=== PATIENT | male | born 1980 | race Caucasian/White ===

== ENCOUNTER 2019-02-18 09:57 | Inpatient (IN) | payer OTHER ==
[~2019-02-18] VITALS: Ht 177.8 cm; Wt 89.4 kg
[2019-02-18 10:19] VITALS: BP 114/86
[2019-02-18] MEDS ORDERED: VITAMIN D22000 UNIT PO (10:21)
[2019-02-18] MEDS ORDERED: MICROZIDE12.5 MG PO (10:21)
[2019-02-18] MEDS ORDERED: LANTUS SUBQ (10:21)
[2019-02-18] MEDS ORDERED: NOVOLOG100 UNIT/1 SUBQ (10:22)
[2019-02-18 10:45] LABS: ABSOLUTE BASOPHILS 0.1 thou/uL (0.0-0.2); ABSOLUTE EOSINOPHILS 0.4 thou/uL (0.0-0.7); ABSOLUTE LYMPHOCYTES 2.1 thou/uL (0.8-5.3); ABSOLUTE MONOCYTES 0.7 thou/uL (0.0-1.2); ABSOLUTE NEUTROPHILS 4.9 thou/uL (1.6-8.1); BASOPHILS 0.8 %; EOSINOPHILS 5.4 %; HEMATOCRIT 42.5 % (42.0-52.0); HEMOGLOBIN 14.4 gm/dL (14.0-18.0); MCH 31.4 pg (26.0-34.0); MCHC 33.8 g/dL (28.0-37.0); MONOCYTES 8.6 %; MPV 7.3 fl. (7.2-11.1); NUCLEATED RBCS 0 /100WBC; PLATELET COUNT* 234 thou/uL (150-400); POLYS 59.2 %; RBC 4.57 mil/uL (4.50-6.00); RDW-CV 12.4 % (10.5-14.5); WBC 8.3 thou/uL (4.0-11.0)
[2019-02-18 10:46] LABS: URINE BILIRUBIN NEGATIVE (Negative); URINE BLOOD NEGATIVE (Negative); URINE CLARITY CLEAR; URINE COLOR YELLOW; URINE GLUCOSE-RANDOM 2+ (Negative); URINE KETONES NEGATIVE (Negative); URINE LEUKOCYTES-REFLEX NEGATIVE (Negative); URINE NITRITE-REFLEX NEGATIVE (Negative); URINE PROTEIN NEGATIVE (Negative); URINE SPECIFIC GRAVITY <= 1.005 (1.005-1.030); URINE UROBILINOGEN 0.2 E.U./dl (0.2-1.0)
[2019-02-18 10:58] LABS: BE -2.6 mmol/L (-2 to +3); PCO2 42.9 mmHg (35.0-45.0); pH 7.348 (7.340-7.450)
[2019-02-18 11:00] LABS: PO2 129.8 mmHg (75.0-100.0)
[2019-02-18 11:05] LABS: ALBUMIN 3.5 g/dL (3.4-5.0); CREATININE 0.9 mg/dL (0.6-1.3); TOTAL BILIRUBIN 0.5 mg/dL (<0.1-1.0); TOTAL PROTEIN 7.9 g/dL (6.4-8.2)
[2019-02-18 11:13] LABS: APTT 25.9 Seconds (25.0-31.3)
[2019-02-18 12:17] VITALS: BP 124/81
[2019-02-18 12:38] LABS: AMP/METHAMP Negative (Negative); BARBITURATES Negative (Negative); BENZODIAZEPINES Negative (Negative); COCAINE Negative (Negative); METHADONE Negative (Negative); OPIATES Negative (Negative); PCP Negative (Negative); THC POSITIVE (Negative)
[2019-02-18] MEDS ORDERED: ASA81BEC PO (15:15)
[2019-02-18 17:09] VITALS: BP 118/73
--- NOTE | 2019-02-18 18:05 | NUR ---
PATIENT RESTIN GIN BED. PATIENT IS UP AD LONNIE IN ROOM. BLOOD SUGAR BETTER THIS EVENING AT 226. PATIENT HAS EXCELLENT APPETITE AND WAS EDUCATED ON NOT SNACKING IN BETWEEN MEALS UNTIL BLOOD SUGAR UNDER CONTROL. PATIENT DENIES ANY PAIN. PATIENT REQUESTED NICOTINE GUM WHICH IS NOT AVAILABLE PER PHARMACY SO NICOTINE PATCH PLACED. PATIENT DENIES ANY NEEDS AT THIS TIME. CALL LIGHT WITHIN REACH.
[2019-02-18 20:05] VITALS: BP 120/75
[2019-02-19 00:40] VITALS: BP 100/67
--- NOTE | 2019-02-19 04:30 | NUR ---
PATIENT C/O PAIN/NEUROPATHY TO LOWER EXTREMITIES AT START OF SHIFT. RECEIVED ONETIME ORDER OF GABAPENTIN. WHEN ATTEMPTING TO ADMINISTER, PATIENT STATES "IT DOES NOT WORK. I HAVE BEEN PRESCRIBED THAT BEFORE. ALL IT DOES IS MAKE ME SICK." RECONTACTED PHYSICIAN FOR DIFFERENT ORDERS. ORDER RECEIVED FOR HYDROCODONE. PATIENT ALSO ENCOURAGED TO AMBULATE TO IMPROVE BLOOD FLOW. PAIN HAS SINCE BEEN RELIEVED AND PATIENT ABLE TO SLEEP. CALL LIGHT WITHIN REACH
[2019-02-19 05:00] VITALS: BP 98/63
[2019-02-19 08:57] VITALS: BP 120/72
[2019-02-19] MEDS ORDERED: LANTUS SUBQ (11:32)
[2019-02-19] MEDS ORDERED: TEST STRIPS1 EACH TOP (11:32)
[2019-02-19] MEDS ORDERED: NOVOLOG100 UNIT/1 SUBQ (11:32)
--- NOTE | 2019-02-19 11:57 | NUR ---
Pt is A&O. Resides at home with his parents and several other adults. Independent, Pt recently started a job at [employer]. No DME. No hx of HH or SNF. CM provided Pt with safety net clinic info and encouraged to [facility] [place] see if he qualifies for the gold card. Nurse provided glucometer. Pt discharging to home today
[2019-02-19 12:32] VITALS: BP 120/72
--- NOTE | 2019-02-19 13:16 | NUR ---
VSS, ASSUMED CARE IN THE AM, ASSESSMENT PERFORMED AND CHARTED, FALL PRECAUTIONS IN PLACE AND CALL LIGHT IN REACH, PT IS A&O4 AND UP AD LONNIE, PT STATED PAIN IN LEGS, PT IS TRACING SR ON THE MONITOR, AT THIS TIME PT HAS BEEN GIVEN DISCHARGE ORDERS, I FILLED OUT D/C PAPERS AND TOOK OUT IV, PROVITED D/C EDU AND AT TIME OF D/C DENIED ANY QUESTIONS AT TIME OF D/C
== END 2019-02-19 13:16 | disposition home or self-care (01) | DRG 639 ==
LOC: M.ERS 09:57 → M.TBA-ER 11:20 → M.2W 12:55
PROVIDERS: Physician Assistant; ADMIT Family Medicine
DX: E11.00 Type 2 diabetes mellitus with hyperosmolarity without nonketotic hyperglycemic-hyperosmolar coma (NKHHC) (principal); J45.909 Unspecified asthma, uncomplicated; F17.210 Nicotine dependence, cigarettes, uncomplicated; F12.90 Cannabis use, unspecified, uncomplicated; B19.20 Unspecified viral hepatitis C without hepatic coma; E55.9 Vitamin D deficiency, unspecified; I10 Essential (primary) hypertension; E11.65 Type 2 diabetes mellitus with hyperglycemia; Z88.1 Allergy status to other antibiotic agents; Z88.0 Allergy status to penicillin; Z79.899 Other long term (current) drug therapy

== ENCOUNTER 2019-03-13 06:45 | Emergency (ER) | payer OTHER ==
[~2019-03-13] VITALS: Ht 177.8 cm; Wt 83.9 kg
[~2019-03-13 06:45] MED LIST: ASA81BEC PO; LANTUS SUBQ; MICROZIDE12.5 MG PO; NOVOLOG100 UNIT/1 SUBQ; TEST STRIPS1 EACH TOP; VITAMIN D22000 UNIT PO
[2019-03-13] MEDS ORDERED: HYDROCODON-ACE1 EAC7 PO (07:55)
[2019-03-13] MEDS ORDERED: MEDROLDOSEPACK PO (07:55)
[2019-03-13] MEDS ORDERED: MELOXICAM15 MG PO (07:55)
[2019-03-13 08:28] VITALS: BP 126/70
== END 2019-03-13 08:28 | disposition home or self-care (01) ==
LOC: M.ERS 06:45
DX: M54.41 Lumbago with sciatica, right side (principal); M54.42 Lumbago with sciatica, left side; E11.9 Type 2 diabetes mellitus without complications; J45.909 Unspecified asthma, uncomplicated; F17.210 Nicotine dependence, cigarettes, uncomplicated; Z88.0 Allergy status to penicillin; Z88.1 Allergy status to other antibiotic agents; Z86.19 Personal history of other infectious and parasitic diseases

== ENCOUNTER 2019-07-21 08:53 | Emergency (ER) | payer OTHER ==
[~2019-07-21] VITALS: Ht 175.3 cm; Wt 76.2 kg
[~2019-07-21 08:53] MED LIST changes: +HYDROCODON-ACE1 EAC7 PO; +MEDROLDOSEPACK PO; +MELOXICAM15 MG PO
[2019-07-21 09:15] LABS: ABSOLUTE BASOPHILS 0.1 thou/uL (0.0-0.2); ABSOLUTE EOSINOPHILS 0.2 thou/uL (0.0-0.7); ABSOLUTE LYMPHOCYTES 2.3 thou/uL (0.8-5.3); ABSOLUTE MONOCYTES 0.5 thou/uL (0.0-1.2); ABSOLUTE NEUTROPHILS 6.3 thou/uL (1.6-8.1); BASOPHILS 0.6 %; EOSINOPHILS 2.3 %; HEMATOCRIT 46.6 % (42.0-52.0); LYMPHOCYTES 24.5 %; MCH 31.6 pg (26.0-34.0); MCHC 34.3 g/dL (28.0-37.0); MCV 92.1 fL (80.0-100.0); MONOCYTES 5.5 %; MPV 6.5 fl. (7.2-11.1); NUCLEATED RBCS 0 /100WBC; PLATELET COUNT* 316 thou/uL (150-400); POLYS 67.1 %; RBC 5.06 mil/uL (4.50-6.00); RDW-CV 12.2 % (10.5-14.5); WBC 9.4 thou/uL (4.0-11.0)
[2019-07-21 09:23] LABS: BE -0.4 mmol/L (-2 to +3); PCO2 VENOUS 53.9 mmHg (41.0-51.0); PO2 VENOUS 33.4 mmHg (35.0-45.0)
[2019-07-21 09:26] LABS: CALCIUM 8.5 mg/dL (8.5-10.1); CREATININE 1.2 mg/dL (0.6-1.3)
[2019-07-21 09:28] LABS: ALBUMIN 3.3 g/dL (3.4-5.0); TOTAL BILIRUBIN 0.5 mg/dL (<0.1-1.0); TOTAL PROTEIN 8.1 g/dL (6.4-8.2)
[2019-07-21 10:56] LABS: URINE BILIRUBIN NEGATIVE (Negative); URINE BLOOD NEGATIVE (Negative); URINE CLARITY CLEAR; URINE COLOR YELLOW; URINE GLUCOSE-RANDOM 3+ (Negative); URINE KETONES NEGATIVE (Negative); URINE LEUKOCYTES-REFLEX NEGATIVE (Negative); URINE NITRITE-REFLEX NEGATIVE (Negative); URINE PROTEIN NEGATIVE (Negative); URINE SPECIFIC GRAVITY <= 1.005 (1.005-1.030); URINE UROBILINOGEN 0.2 E.U./dl (0.2-1.0)
[2019-07-21 11:03] LABS: AMP/METHAMP POSITIVE (Negative); BARBITURATES Negative (Negative); BENZODIAZEPINES Negative (Negative); COCAINE Negative (Negative); METHADONE Negative (Negative); OPIATES Negative (Negative); PCP Negative (Negative); THC POSITIVE (Negative)
[2019-07-21] MEDS ORDERED: NOVOLOG100 UNIT/1 SUBQ (11:56)
[2019-07-21 12:42] VITALS: BP 107/72
== END 2019-07-21 12:44 | disposition home or self-care (01) ==
LOC: M.ERS 08:53
PROVIDERS: Family Medicine
DX: E11.65 Type 2 diabetes mellitus with hyperglycemia (principal); E87.1 Hypo-osmolality and hyponatremia; E11.9 Type 2 diabetes mellitus without complications; J45.909 Unspecified asthma, uncomplicated; Z88.0 Allergy status to penicillin; Z88.1 Allergy status to other antibiotic agents; Z86.19 Personal history of other infectious and parasitic diseases; Z79.4 Long term (current) use of insulin; Z79.899 Other long term (current) drug therapy